=== PATIENT | male | born 1955 | race Caucasian/White ===

== ENCOUNTER 2017-05-01 05:10 | Inpatient (IN) | payer OTHER ==
[2017-04-24 16:53] VITALS: BMI 30.1
[~2017-05-01 05:10] MED LIST: BACITRACIN 15 GM TUBE TOPICAL OINTMENT TP ONE
[2017-05-01] MEDS ORDERED: ACETAMINOPHEN INJECTION 100 ML IVPB ONE (07:05)
[2017-05-01] MEDS ORDERED: LIDOCAINE HCL/PF 2% SDV 5ML VIAL ONE (07:16)
[2017-05-01] MEDS ORDERED: PHENYLEPHRINE HCL 10 MG/1 ML SINGLE DOSE VIAL ONE ×3 (07:16→09:33)
[2017-05-01] MEDS ORDERED: DEXAMETHASONE SOD PHOSPHATE 4 MG/1 ML VIAL ONE ×3 (07:16→11:49)
[2017-05-01] MEDS ORDERED: ePHEDrine SULFATE 50 MG/1 ML AMPULE ONE (07:18)
[2017-05-01] MEDS ORDERED: fentaNYL CITRATE 250 MCG/5 ML VIAL ONE ×2 (07:19→09:34)
[2017-05-01] MEDS ORDERED: ONDANSETRON 4 MG/2 ML VIAL ONE ×2 (07:19→12:28)
[2017-05-01] MEDS ORDERED: ROCURONIUM BROMIDE 50 MG/5 ML VIAL ONE (07:19)
[2017-05-01] MEDS ORDERED: SUCCINYLCHOLINE CHLORIDE 200 MG/10 ML VIAL ONE (07:19)
[2017-05-01] MEDS ORDERED: PROPOFOL 20 ML ONE ×18 (07:19→10:30)
[2017-05-01] MEDS ORDERED: MIDAZOLAM HCL 2 MG/2 ML SINGLE DOSE VIAL ONE ×2 (07:20)
[2017-05-01] MEDS ORDERED: THROMBIN (BOVINE) 5,000 UNIT VIAL TP ONE ×2 (07:59→09:27)
--- NOTE | 2017-05-01 08:04 | HP ---
History & Physical Update - History History: No Change - Physical Physical: No Change - Assessment Assessment: No Change - Plan Plan: No Change
[2017-05-01] MEDS ORDERED: SODIUM CHLORIDE 0.9% P/F 10 ML VIAL IJ ONE (08:20)
[2017-05-01] MEDS ORDERED: ceFAZolin SODIUM 1 GM VIAL ONE (08:20)
[2017-05-01] MEDS ORDERED: ceFAZolin SODIUM 1 GM VIAL IVPB ONE (08:47)
[2017-05-01] MEDS ORDERED: HYDROmorphone HCL CARPU-JECT 2 MG/1 ML DISP.SYRIN ONE (09:26)
[2017-05-01] MEDS ORDERED: BACITRACIN 50,000 UNITS VIAL TP ONE (09:27)
[2017-05-01] MEDS ORDERED: DEXAMETHASONE SOD PHOSPHATE/PF 10 MG/ML SDV ONE (11:51)
[2017-05-01] MEDS ORDERED: ONDANSETRON 4 MG/2 ML VIAL IVPUSH PRN ×2 (12:48→13:22)
--- NOTE | 2017-05-01 12:48 | OP ---
Operative Note - Note: Operative Date: 05/01/17 Pre-Operative Diagnosis: C5-6 DDD, stenosis, radiculopathy, prior C6-7 fusion Operation: Removal of prior instrumentation C6-7; anterior cervical discectomy C5-6, partial corpectomies C5 and C6; anterior interbody fusion C5-6; anterior instrumentation C5-6; interbody implant C5-6; microdissection, traction tongs Findings: Solid C6-7 fusion; paraspinal fibrosis; sensitive B C6 roots; attenuated R UE MEP signal, improved after shoulder traction release Implants: Vargas Spine Trinica Select 22mm titanium plate and 16 mm variable angle screws (4); 8 mm Interbody implant from [place] Surgeon: Preston Drake Director Of Occupational Therapy: Margarita Raines Anesthesiologist/WASTEWATER TREATMENT OPERATOR: Ector George Anesthesia: General Specimens Removed: Prior implants C6-7; C5-6 DDD Estimated Blood Loss (mls): 150 Operative Report Dictated: Yes
[2017-05-01] MEDS ORDERED: DOXEPIN HCL 10 MG CAPSULE PO PRN (12:50)
[2017-05-01] MEDS ORDERED: BACITRACIN 15 GM TUBE TOPICAL OINTMENT TP ONE (12:52)
[2017-05-01] MEDS: D5-1/2NS+20 MEQ KCL - 20 MEQ/1,000 ML INFUS.BAG IV SCH ×2 (13:15→16:45)
--- NOTE | 2017-05-01 13:17 | SURG ---
Surgery Piecer Note Piecer: Margarita Raines PA-C Date of Service: 05/01/17 Diagnosis: C5-6 DDD, stenosis, radiculopathy, prior C6-7 fusion Procedure: Removal of prior instrumentation C6-7; anterior cervical discectomy C5-6, partial corpectomies C5 and C6; anterior interbody fusion C5-6; anterior instrumentation C5-6; interbody implant C5-6; microdissection, traction tongs I was present for the entirety of the operative procedure. For further detail, please refer to operative report. Visit type - Case Type Case Type: Scheduled Admission - Emergency Emergency Visit: No - New patient This patient is new to me today: Yes Date on this admission: 05/01/17
--- NOTE | 2017-05-01 13:21 | PN ---
Progress Note (short form) - Note Progress Note: NEUROSURGERY In PACU AF, VSS; O2 sat 100% PE: CV- RRR; Lungs- CTA; Abd- benign; Ext- no sign of DVT CN- intact; Motor- at least 4+/5 b UE and LE; Sensation- grossly intact LT Intra-op findings d/w X-rays C spine in AM CARE MANAGER for pain Valium for muscle spasm
[2017-05-01] MEDS ORDERED: DEXAMETHASONE SOD PHOSPHATE 4 MG/1 ML VIAL IVPUSH PRN (13:22)
[2017-05-01] MEDS ORDERED: PROMETHAZINE HCL 25 MG/1 ML VIAL IVPB PRN (13:22)
[2017-05-01] MEDS ORDERED: PROMETHAZINE HCL 25 MG/1 ML VIAL IVPUSH PRN (13:22)
[2017-05-01] MEDS: HYDROmorphone *PCA* 10MG/50ML DISP.SYRIN PCA SCH (13:48)
[2017-05-01] MEDS ORDERED: CLINDAMYCIN PHOSPHATE 600 MG/4 ML VIAL ONE (14:13)
[2017-05-01] MEDS: CLINDAMYCIN 600MG PREMIX IVPB 600 MG/50 ML BAG IVPB SCH ×2 (14:30→16:45)
[2017-05-01] MEDS: diazePAM 5 MG TABLET PO SCH ×2 (16:45→21:33)
[2017-05-01] MEDS: LACTATED RINGERS SOLUTION 1,000 ML IV SCH (16:45)
[2017-05-01] MEDS: DOCUSATE SODIUM 100 MG CAPSULE (FP) PO SCH ×2 (16:45→21:35)
[2017-05-02] MEDS: CLINDAMYCIN 600MG PREMIX IVPB 600 MG/50 ML BAG IVPB SCH ×2 (03:00→10:51)
[2017-05-02] MEDS: diazePAM 5 MG TABLET PO SCH ×3 (06:28→21:38)
[2017-05-02] MEDS: D5-1/2NS+20 MEQ KCL - 20 MEQ/1,000 ML INFUS.BAG IV SCH ×3 (06:29→18:36)
[2017-05-02] MEDS: DOCUSATE SODIUM 100 MG CAPSULE (FP) PO SCH ×3 (06:29→21:38)
--- NOTE | 2017-05-02 06:42 | OP ---
DATE OF OPERATION: 05/01/2017 PREOPERATIVE DIAGNOSES: 1. C5-6 degenerative disk disease with neck pain and bilateral cervical radiculopathy. 2. Prior C6-7 fusion. POSTOPERATIVE DIAGNOSES: 1. C5-6 degenerative disk disease with neck pain and bilateral cervical radiculopathy. 2. Prior C6-7 fusion. ATTENDING SURGEON: Preston Drake MD [employer] MAIL DRIVER: MICHELE White ANESTHESIA: General endotracheal. ANESTHESIOLOGIST: Ector George MD ESTIMATED BLOOD LOSS: 150 mL PROCEDURE: 1. Preoperative placement and postoperative removal of cranial traction tongs for intraoperative traction (07603). 2. Removal of anterior cervical instrumentation, C6-7 (89519). 3. Anterior cervical diskectomy, C5-6. 4. Anterior cervical partial corpectomy, C5 and C6 for spinal cord and cervical root decompression, including bilateral foraminotomies at C5 and C6 (79567, 00672). 5. Microsurgical dissection with the operative microscope and microsurgical techniques (26255). 6. Anterior cervical interbody fusion, C5-6 (27293). 7. Utilization of intervertebral prosthetic lordotic device at C5-6 from Pingu[employer], 8 mm in height (78448). 8. Anterior cervical plating system placement from C5 to C6 with Vargas Spine 22-mm Trinica Select titanium plate and 16-mm variable-angle screws at C5 and C6 ( 24289-58). FINDINGS: 1. Sensitive bilateral C5-6 nerve roots. 2. Irritable or recurrent laryngeal nerve activities initially upon exposure. 3. Attenuated right upper extremity motor-evoked potential, recovered. INDICATIONS: The patient is a 62-year-old, right-handed male with a history of cervical disk herniation status post a C6-7 anterior cervical diskectomy and fusion over 10 years ago. He presents with worsening pain radiating down to bilateral upper extremities, left greater than right. There is also numbness and paresthesia. MRI demonstrated C5-6 degenerative disk disease with some spinal stenosis. There was also proximal foraminal stenosis. EMG demonstrated bilateral C6 radiculopathy. Because of intractable symptoms, abnormal EMG, and failure of conservative treatment, he consented for anterior cervical decompression and fusion with instrumentation at C5-6, after removal of the prior C6-7 implants. The risks of the procedure include, but are not limited to, bleeding, infection, dural tear with CSF leak, neurological injury, paralysis, increased thromboembolic risks, hoarseness and swallowing difficulties, and other risks of general anesthesia. The patient understands the indications for the procedure, procedure in detail, risks and benefits, and alternatives for treatment of his condition and wished to proceed. No guarantees were given for a favorable outcome. PROCEDURE IN DETAIL: The patient was taken to the operating room, and he was placed in supine position. After general anesthesia was induced and appropriate monitoring lines were placed, the shoulders were taped down, and cranial traction tongs were applied with bacitracin ointment. The head was secured in a Franklin horseshoe in the usual neutral position. No traction weight was placed until baseline SSEP, EMG, and MEP signals were obtained. The traction weight was then increased to 5 pounds initially. The patient was sterilely prepped and draped. Prior left-sided anterior cervical incision was used. The skin incision was opened with a number 10 blade. A self-retaining retractor was inserted. The platysma muscle was split longitudinal with Metzenbaum scissors. A paraspinous fibrosis was noted. Dissection then proceeded medially to the carotid sheath and lateral towards the trachea and esophagus. Moderate paraspinal fibrosis was then encountered, and meticulous dissection was carried out. After placement of the handheld retractor, there was some aberrant recurrent laryngeal nerve EMG activity, and the retractor was removed. A different trajectory had to be taken in order to approach the spine. The omohyoid muscle was retracted medially. A fairly deep exposure was encountered. The recurrent laryngeal nerve EMG activity returned to baseline after retraction relaxation and time. The prevertebral fibrosis was dissected free with periosteal elevator , and the prior plating and screw system from [employer] was skeletonized. The locking mechanism was first disengaged, and then screws were backed out with primary screwdrivers. The screw holes were covered with thrombin-filled powder and Gelfoam, and the wound was irrigated with antibiotic-containing irrigation. Attention then turned to the C5-6 disk space where a spinal needle was inserted , and despite his shoulders being taped down and the traction weight increased to 10 pounds, visualization was generally poor. However, because of the presence of the prior implant system, there was no question as to the level of exposure with prior fusion. The fusion was solid at C6-7. At this point, the longus colli muscle was reflected laterally with periosteal elevator and coagulated with bipolar electrocautery. A self-retraining retractor system was inserted. The disk annulus was incised with number-15 blade, and the disk material was removed with a combination of straight and angle curettes as well as pituitary rongeur and Kerrison rongeur, and the disk space was rather collapsed. Partial corpectomy was needed in order to gain access to the spinal cord as well as the cervical roots at the C5- 6 level. This portion of the procedure was performed using the operative microscope for both illumination and magnification. Microsurgical techniques were utilized. The posterior longitudinal ligament was dissected free with angled curette and resected with Kerrison rongeur. Bilateral C6-7 nerve roots were rather sensitive to bipolar electrocautery stimulation as well as mechanical stimulation from the Kerrison rongeur and the angled curettes. Bilateral foraminotomy was carried out with angled curette and Kerrison rongeur to free up the bilateral C6 nerve root. The foramen was felt to be open after palpating with a blunt nerve hook after decompression was completed. At this point, the AP diameter of the vertebral body was found to be approximately 7.5 mm. An 8-mm lordotic implant from Pingu[employer] was inserted and countersunk by about 2-3 mm. Anterior plating system was placed at C5-6 with 16 mm regular variable angle screws. Repeat motor-evoked potential at this point found the patient to have attenuated right triceps and right hand signals. The plating system was removed and the interbody implant was, therefore, drilled down and removed to inspect the dura and nerve rots. Bilateral neuroforamen was once again explored at C5-6, and further resection of the posterior edges of the vertebral body was carried out including the posterior longitudinal ligament. The signal remained attenuated, and the traction weight was decreased, as well as the right shoulder tape. The entire right arm was checked for any pressure, and there was none. The wound was copiously irrigated with antibiotic-containing irrigation. Another 8-mm interbody implant was placed and countersunk by about 3 mm. The 22-mm Trinica Select titanium plate was secured with fixation pins, and screw holes were made with hand-held drill and drill guide. Then, 16-mm screws were used at C5 and 16-mm rescue screws were used at C6 bilaterally because there were prior screw holes. The locking mechanism was engaged. Final fluoroscopic images were obtained of the implants. They appeared to be in satisfactory position. The wound was then once again irrigated, and the locking mechanism of the plating and screw system was engaged. The motor-evoked potential of the right upper extremity did improve after the above maneuver. A layer of Surgicel was layered in the dissection track. The platysmal muscle was closed with 3-0 Vicryl suture as well as the subcutaneous fascia. The skin was closed with 4-0 Vicryl running subcuticular suture. The patient tolerated the procedure well and was extubated in the operating room. The cranial traction tongs were removed. He was moving bilateral upper and lower extremities in the recovery room. He received 1 dose of 10 mg of Decadron and 2 g of Ancef prior to the incision. All need and lap counts were correct. Christine [id number] MTDD
--- NOTE | 2017-05-02 07:58 | PN ---
Progress Note (short form) - Note Progress Note: NEUROSURGERY POD #1 Tmax 98.6, AF, VSS; O2 sat 100% Some sore throat Headaches Voiding by himself PE: CV- RRR; Lungs- CTA; Abd- benign; Ext- no sign of DVT CN- intact; Motor- at least 4+/5 b UE and LE; Sensation- grossly intact LT Intra-op findings d/w pt and X-rays C spine today Cont DIRECTOR DATABASE for pain Add Oxycodone for pain Valium for muscle spasm when hospitalized PT evaluation for gait/safety Plan discharge tomorrow
[2017-05-02] MEDS ORDERED: PT OWN MED DRAWER 7, Y5N ONE (10:48)
[2017-05-02] MEDS: amLODIPine BESYLATE 10 MG TABLET (FP) PO SCH (10:51)
[2017-05-02] MEDS: PANTOPRAZOLE 40 MG TABLET (FP) PO SCH (10:51)
[2017-05-02] MEDS: LOSARTAN POTASSIUM 100 MG TABLET PO SCH (10:51)
[2017-05-02] MEDS: oxyCODONE HCL 5 MG TABLET PO PRN ×2 (13:27→18:35)
--- NOTE | 2017-05-02 15:53 | PN ---
Progress Note (short form) - Note Progress Note: ANESTHESIOLOGY POST-OP CHECK 62M s/p anterior cervical decompression, hardware removeal and fusion under general anesthesia, POD #1. No acute complaints, tolerating PO liquid, ambulating and voiding. Denies N/V. Pain 6/10 and tolerable. Vital Signs Temperature 99.3 F 05/02/17 14:00 Pulse Rate 71 05/02/17 14:00 Respiratory Rate 20 05/02/17 14:00 Blood Pressure 144/92 05/02/17 14:00 O2 Sat by Pulse Oximetry (%) 96 05/01/17 21:00 Active Medications Amlodipine Besylate (Norvasc -) 10 mg PO DAILY [facility] Last Admin: 05/02/17 10:51 Dose: 10 mg Dexamethasone Sodium Phosphate (Decadron Injection -) 4 mg IVPUSH ONCE PRN PRN Reason: NAUSEA AND/OR VOMITING Diazepam (Valium -) 5 mg PO TID [facility] Last Admin: 05/02/17 06:28 Dose: 5 mg Diphenhydramine HCl (Benadryl Injection -) 12.5 mg IVPUSH ONCE PRN PRN Reason: FOR ITCHING Docusate Sodium (Colace -) 100 mg PO TID [facility] Last Admin: 05/02/17 06:29 Dose: 100 mg Doxepin HCl (Sinequan -) 10 mg PO HS PRN PRN Reason: INSOMNIA Fentanyl (Sublimaze Injection -) 50 mcg IVPUSH [id number] PRN PRN Reason: PAIN Hydromorphone HCl (Dilaudid Data Collection Associate -) 0 mg CERTIFIED DRIVER EXAMINER CERTIFIED DRIVER EXAMINER GABO PRN Reason: Protocol Stop: 05/08/17 13:22 Last Admin: 05/01/17 13:48 Dose: 10 mg Potassium Chloride/Dextrose/Sod Cl (D5-1/2ns+20 Meq Kcl -) 20 meq in 1,000 mls @ 100 mls/hr IV ASDIR [facility] Last Admin: 05/02/17 13:28 Dose: 100 mls/hr Lactated Ringer's (Lactated Ringers Solution) 1,000 mls @ 125 mls/hr IV ASDIR [facility] Last Admin: 05/01/17 16:45 Dose: Not Given Losartan Potassium (Losartan Potassium) 100 mg PO DAILY [facility] Last Admin: 05/02/17 10:51 Dose: 100 mg Ondansetron HCl (Zofran Injection) 4 mg IVPUSH Q6H PRN PRN Reason: NAUSEA AND/OR VOMITING Oxycodone HCl (Roxicodone -) 5 mg PO Q4H PRN PRN Reason: PAIN Last Admin: 05/02/17 13:27 Dose: 5 mg Pantoprazole Sodium (Protonix -) 40 mg PO DAILY [facility] Last Admin: 05/02/17 10:51 Dose: 40 mg Promethazine HCl (Phenergan Injection -) 12.5 mg IVPUSH Q6H PRN PRN Reason: NAUSEA-FOR RESCUE AFTER 15 MIN Promethazine HCl (Phenergan Injection -) 12.5 mg IVPB Q6H PRN PRN Reason: NAUSEA AND/OR VOMITING Gen: Awake, alert, NAD No apparent anethesia complications. Pain controlled. October D/C CERTIFIED DRIVER EXAMINER this evening when taking PO diet. Continue management as per primary team.
[2017-05-02] MEDS: LACTATED RINGERS SOLUTION 1,000 ML IV SCH (15:58)
[2017-05-02] MEDS: HYDROmorphone *PCA* 10MG/50ML DISP.SYRIN PCA SCH (15:58)
--- NOTE | 2017-05-02 18:54 | PATH ---
Surgical Pathology Report Patient Name: ISRAEL CLIFTON Med. Rec. #: [id number] /Age/Gender: 1955 (Age: 62) / M Account: [id number] Location: [facility] MED/SURG Taken: 05/01/2017 Received: 05/01/2017 Reported: 05/02/2017 Physicians: Preston Drake M.D. Specimen(s) Received A: HARDWARE 4 SCREWS AND PLATE B: DISC C5-C6 Clinical History Cervical disc Final Diagnosis A. SPINE, CERVICAL, HARDWARE, REMOVAL: SURGICAL HARDWARE. MACROSCOPIC DIAGNOSIS. B. DISC C5-6: ANTERIOR CERVICAL LAMINECTOMY: INTERVERTEBRAL DISC TISSUE. Electronically Signed Chayito Meza M.D. Gross Description A. Received fresh labeled "hardware 4 screws and 1 plate," is a 2.2 x 1.4 x 0.2 cm arvizu metallic plate. Also received within the same container are 4 arvizu metallic screws averaging 1.5 cm in length. No soft tissue is present. No sections are submitted, gross only. B. Received in formalin labeled "disc C5-6," is a 2.2 x 1.7 x 0.3 cm aggregate of dunne fragments of fibrocartilaginous tissue. A Shank Threader portion is submitted in one cassette. 05/01/201705/01/2017
[2017-05-03] MEDS: DOCUSATE SODIUM 100 MG CAPSULE (FP) PO SCH (05:29)
[2017-05-03] MEDS: diazePAM 5 MG TABLET PO SCH (05:29)
[2017-05-03] MEDS: D5-1/2NS+20 MEQ KCL - 20 MEQ/1,000 ML INFUS.BAG IV SCH (05:31)
[2017-05-03] MEDS: oxyCODONE HCL 5 MG TABLET PO PRN ×2 (05:41→09:23)
--- NOTE | 2017-05-03 08:43 | PN ---
Progress Note (short form) - Note Progress Note: NEUROSURGERY POD #2 Incisional pain in neck Tmax 98.5, AF, periodic diastolic hypertension Some sore throat No arm/hand spasm or numbness/paresthesia Headaches PE: CV- RRR; Lungs- CTA; Abd- benign; Ext- no sign of DVT CN- intact; Motor- at least 4+/5 b UE and LE; Sensation- grossly intact LT Intra-op findings d/w pt and X-rays C spine- satisfactory implant position; prevertebral swelling as expected Add Oxycodone for pain Valium for muscle spasm when hospitalized PT evaluation for gait/safety Plan discharge today Instructions given for wound care, activity, followup, and precautions
[2017-05-03] MEDS ORDERED: PT OWN MED DRAWER 7, Y5N ONE (09:09)
[2017-05-03] MEDS: LOSARTAN POTASSIUM 100 MG TABLET PO SCH (09:24)
[2017-05-03] MEDS: amLODIPine BESYLATE 10 MG TABLET (FP) PO SCH (09:24)
[2017-05-03] MEDS: PANTOPRAZOLE 40 MG TABLET (FP) PO SCH (09:24)
[2017-05-03 11:25] VITALS: BP 160/98; PULSE 86; TEMP 97.6
== END 2017-05-03 10:32 | disposition home or self-care (01) | DRG 473 ==
LOC: JSAMEDAYSX 05:10 → EDSTATUS 08:00 → J8W 15:40
PROVIDERS: ADMIT Neurological Surgery; ATTEND Neurological Surgery
PROC: 0RG10A0 Fusion of Cervical Vertebral Joint with Interbody Fusion Device, Anterior Approach, Anterior Column, Open Approach (ICD-10-PCS; 2017-05-01)
PROC: 01N10ZZ Release Cervical Nerve, Open Approach (ICD-10-PCS; 2017-05-01)
PROC: 0RT30ZZ Resection of Cervical Vertebral Disc, Open Approach (ICD-10-PCS; 2017-05-01)
PROC: 0RP10AZ Removal of Interbody Fusion Device from Cervical Vertebral Joint, Open Approach (ICD-10-PCS; principal; 2017-05-01 08:00)
DX: M50.122 Cervical disc disorder at C5-C6 level with radiculopathy (principal); I10 Essential (primary) hypertension; K21.9 Gastro-esophageal reflux disease without esophagitis; K27.9 Peptic ulcer, site unspecified, unspecified as acute or chronic, without hemorrhage or perforation; G47.39 Other sleep apnea; M48.02 Spinal stenosis, cervical region
CPT/HCPCS: 72050-TC; 76000-TC; 88300-TC; 88304-TC; 94010; 94760; 97116-GP; 97161-GP